=== PATIENT | female | born 1990 | race African-American/Black ===

== ENCOUNTER 2017-04-03 14:17 | Emergency (ER) | payer MEDICAID ==
[~2017-04-03] VITALS: Ht 149.9 cm; Wt 54.0 kg
[2017-04-03] MEDS ORDERED: IBUPROFEN 600MG TABLET PO ONE (18:30)
[2017-04-03 18:51] VITALS: BP 102/64
== END 2017-04-03 20:02 | disposition home or self-care (01) ==
LOC: ER 18:29
DX: M25.511 Pain in right shoulder (principal)
CPT/HCPCS: 73030; 81025; 99284

== ENCOUNTER 2017-12-29 02:39 | Emergency (ER) | payer MEDICAID ==
[~2017-12-29] VITALS: Ht 160 cm; Wt 50.0 kg
[2017-12-29] MEDS ORDERED: ONDANSETRON HCL 4MG/2ML VIAL IV STA (03:13)
[2017-12-29] MEDS ORDERED: MORPHINE SULFATE 4 MG/ML CPJ (NOT FOR IM USE) IV STA (03:13)
[2017-12-29] MEDS ORDERED: SODIUM CHLORIDE 0.9% 1,000 ML IV ONE (03:13)
[2017-12-29 03:30] VITALS: BP 98/55
[2017-12-29 03:37] LABS: BASOPHILS % 0.3 % (0.0-2.0); EOSINOPHILS % 0.4 % (0.0-5.0); HEMATOCRIT. 36.2 % (36.0-48.0); HEMOGLOBIN. 11.7 g/dL (12.0-16.0); LYMPHOCYTES % 17.9 % (20.0-50.0); MEAN CORPUSCULAR HEMOGLOBIN 25.3 pg (28.0-32.0); MEAN CORPUSCULAR VOLUME 78.2 fL (81.0-99.0); MEAN PLATELET VOLUME 8.4 fl (7.4-10.4); MONOCYTES % 7.6 % (2.0-8.0); NEUTROPHILS % 73.8 % (40.0-76.0); PLATELET 319 x1000/uL (130-400); RED BLOOD CELL COUNT 4.63 mill/uL (4.2-5.4); RED CELL DISTRIBUTION WIDTH 20.2 % (11.6-14.6)
[2017-12-29 03:42] LABS: CHLORIDE 106 mEq/L (98-107)
[2017-12-29 03:44] LABS: HCG SCREEN NEGATIVE
[2017-12-29 03:46] LABS: INR 1.1; PARTIAL THROMBOPLASTIN TIME 22.4 sec (23.4-31.0); PROTHROMBIN TIME 11.7 sec (9.4-11.6)
[2017-12-29] MEDS ORDERED: ACETAMINOPHEN 325MG TABLET PO ONE (04:00)
== END 2017-12-29 03:50 | disposition left against medical advice (07) ==
LOC: ER 02:55
DX: S06.9X9A Unspecified intracranial injury with loss of consciousness of unspecified duration, initial encounter (principal); R55 Syncope and collapse; M54.2 Cervicalgia; R10.9 Unspecified abdominal pain; Z96.659 Presence of unspecified artificial knee joint; Y08.89XA Assault by other specified means, initial encounter; Y93.89 Activity, other specified; Y92.89 Other specified places as the place of occurrence of the external cause; Y99.8 Other external cause status
CPT/HCPCS: 36415; 80053; 83690; 84703; 85025; 85610; 85730; 86850; 86900; 86901; 99284; J7030; Z7610; J2270; J2405